=== PATIENT | male | born 1985 | race Hispanic/Latino ===

== ENCOUNTER 2016-10-10 07:25 | Emergency (ER) | payer OTHER ==
[2016-10-10] MEDS ORDERED: TDAP Vaccine 0.5 mL Syr IM ONE (07:47)
--- NOTE | 2016-10-10 07:51 | ED PDOC ---
HPI: Head Injury Time Seen by Provider: 10/10/16 07:39 Chief Complaint (Nursing): Abnormal Skin Integrity Chief Complaint (Provider): head injury History Per: Patient History/Exam Limitations: no limitations Onset/Duration Of Symptoms: Mins Patient States: Fell Striking Head Severity: Mild Loss Of Consciousness: No Additional Complaint(s): Patient is a 30 year old male presenting to the ED complaining of head injury status post fall earlier this morning. Patient reports he slipped and fell backwards onto to the back of his head. Patient also complaining of injury to tail bone. Denies loss of consciousness, weakness, neck pain, or paresthesia. PMD: none Past Medical History Reviewed: Historical Data, Nursing Documentation, Vital Signs Vital Signs: Last Vital Signs Temp 98.1 F 10/10/16 07:30 Pulse 72 10/10/16 07:30 Resp 18 10/10/16 07:30 BP 136/95 H 10/10/16 07:30 Pulse Ox 100 10/10/16 07:30 - Medical History PMH: No Chronic Diseases - Surgical History Surgical History: No Surg Hx - Family History Family History: States: No Known Family Hx - Home Medications Home Medications: Ambulatory Orders Medication Instructions Recorded Naproxen [Naprosyn] 500 mg PO Q12H #20 tab 10/10/16 - Allergies Allergies/Adverse Reactions: Allergies Allergy/AdvReac Type Severity Reaction Status Date / Time No Known Allergies Allergy Verified 10/10/16 07:50 Review of Systems ROS Statement: Except As Marked, All Systems Reviewed And Found Negative Constitutional: Positive for: Other (head injury) Musculoskeletal: Positive for: Back Pain (injury to tale bone). Negative for: Neck Pain Neurological: Negative for: Weakness, Other (-paresthesia ) Physical Exam - Reviewed Nursing Documentation Reviewed: Yes Vital Signs Reviewed: Yes - Physical Exam Appears: Positive for: Well, Non-toxic, No Acute Distress Head Exam: Positive for: NORMAL INSPECTION, NORMOCEPHALIC. Negative for: ATRAUMATIC (Abrasion to left occipital area, -no palpable head Fx) Skin: Positive for: Normal Color, Warm, DRY Eye Exam: Positive for: EOMI, Normal appearance, PERRL Neck: Positive for: Normal (no c-spine tenderness), Painless ROM, Supple Cardiovascular/Chest: Positive for: Regular Rate, Rhythm. Negative for: Gallop , Murmur Respiratory: Positive for: Normal Breath Sounds. Negative for: Accessory Muscle Use, Rhonchi, Respiratory Distress Back: Positive for: Normal Inspection, Other (Tenderness to coccyx). Negative for: L CVA Tenderness, R CVA Tenderness, Vertebral Tenderness (no spine tenderness) Extremity: Positive for: Normal ROM Neurologic/Psych: Positive for: Alert, Oriented. Negative for: Motor/Sensory Deficits - ECG O2 Sat by Pulse Oximetry: 100 (RA) Pulse Ox Interpretation: Normal Medical Decision Making Medical Decision Making: Time: 7:40 Impression: 30 y/o male w/ head injury and coccyx injury Plan: CT Head TDAP Vaccine 0.5 ml IM XR Scarum & Coccyx Scribe Attestation: Documented by Rojelio Suárez acting as a scribe for Randall Alvarez MD. Scribe Attestation: All medical record entries made by the Scribe were at my direction and personally dictated by me. I have reviewed the chart and agree that the record accurately reflects my personal performance of the history, physical exam, medical decision making, and the department course for this patient. I have also personally directed, reviewed, and agree with the discharge instructions and disposition. Disposition - Clinical Impression Clinical Impression: Head injury, Contusion - Patient ED Disposition Is Patient to be Admitted: No Counseled Patient/Family Regarding: Studies Performed, Diagnosis, Need For Followup, Rx Given - Disposition Referrals: [facility] [Outside] Disposition: Routine/Home Disposition Time: 09:46 Condition: FAIR Prescriptions: Naproxen [Naprosyn] 500 mg PO Q12H #20 tab Instructions: Head Injury (ED), Contusion in Adults (ED)
[2016-10-10] MEDS ORDERED: Tetanus/Diphtheria Toxoids 0.5 ml Syringe IM ONE (07:53)
--- NOTE | 2016-10-10 09:25 | CT ---
PROCEDURE: CT HEAD WITHOUT CONTRAST. HISTORY: r/o bleed COMPARISON: None available. TECHNIQUE: Axial computed tomography images were obtained through the head/brain without intravenous contrast. Radiation dose: Total exam DLP = 934.74 mGy-cm. This CT exam was performed using one or more of the following dose reduction techniques: Automated exposure control, adjustment of the mA and/or kV according to patient size, and/or use of iterative reconstruction technique. FINDINGS: HEMORRHAGE: No intracranial hemorrhage. BRAIN: No mass effect or edema. No atrophy or chronic microvascular ischemic changes. VENTRICLES: Unremarkable. No hydrocephalus. CALVARIUM: Unremarkable. Mild left occipito parietal scalp contusion PARANASAL SINUSES: Unremarkable as visualized. No significant inflammatory changes. MASTOID AIR CELLS: Unremarkable as visualized. No inflammatory changes. OTHER FINDINGS: None. IMPRESSION: Mild left posterior occipito parietal scalp contusion and
[2016-10-10 10:05] VITALS: BP 120/78; PULSE 78; RESP 19; TEMP 97.7; O2SAT 98
--- NOTE | 2016-10-10 10:30 | RAD ---
PROCEDURE: Radiographs of the Sacrum and Coccyx HISTORY: trauma COMPARISON: None available. TECHNIQUE: Frontal and lateral views of the sacrum and coccyx FINDINGS: BONES: Sacrum and coccyx unremarkable. No fracture or focal lesion. Sacral exit foramina appear intact and smoothly marginated SACROILIAC JOINTS: 6 SI joints appear intact without evidence of an within and widening OTHER FINDINGS: None. IMPRESSION: Unremarkable radiographs of the sacrum and coccyx. If symptoms persist or occult fracture suspected clinically recommend followup CT scan of the sacrum and or coccyx.
== END 2016-10-10 10:06 | disposition home or self-care (01) ==
LOC: H.ER 07:25
DX: S09.90XA Unspecified injury of head, initial encounter (principal); S30.0XXA Contusion of lower back and pelvis, initial encounter; W19.XXXA Unspecified fall, initial encounter; Y99.0 Civilian activity done for income or pay